=== PATIENT | female | born 1995 ===

== ENCOUNTER 2016-10-14 19:37 | Inpatient (IN) | payer MEDICAID ==
--- NOTE | 2016-10-14 20:35 | OBHP ---
Datetime: 10/14/2016 20:27 IP Adm Impression: Term, intrauterine ; No Active Labor IP Admit Plan: Admit to unit; Initiate labor induction protocol Pelvic Type - PN: Adequate Extremities - PN: Normal Abdomen - PN: Normal Back - PN: Normal Breast - PN: Normal Lungs - PN: Normal Heart - PN: Normal Thyroid - PN: Normal Neurologic - PN: Normal HEENT - PN: Normal General - PN: Normal IP Hx Assessment: The History has been Reviewed and is Current EGA AdmitDate IP: 40.6 IP Indication for Induction: Postterm Genitourinary Exam: Normal DTRs - PN: Normal Datetime: 10/14/2016 19:50 Admit Comment, IP Provider: Admit for labor induction. Reassuring Statusb; favorable cervix. P itocin for induction of labor. Weight - Estimated: 3600 Presentation-Admit: Vertex FHR - Baseline A Provider: 130 Membranes, Provider: Intact Contraction Comments Provider: Q 5min. Gestation - Est Wks by US: 41.0 Vital Signs Provider: Reviewed; Within Normal Limits IP Chief Complaint: Scheduled induction of labor NICHD Variability Prov Fetus A: Moderate 6-25bpm NICHD Accel Fetus A IP Provider: 15X15 FHR Category Provider Fetus A: Category I NICHD Decel Fetus A IP Provider: None Dilatation, Provider: 2 Effacement, Provider: 70 Station, Provider: -1
--- NOTE | 2016-10-14 20:39 | OBADHP ---
Datetime: 10/14/2016 20:27 Admit Comment, IP Provider: Reassuring Status. Admit for Labor Induction with Pitocin Pelvic Type - PN: Adequate Extremities - PN: Normal Abdomen - PN: Normal Back - PN: Normal Breast - PN: Normal Lungs - PN: Normal Heart - PN: Normal Thyroid - PN: Normal Neurologic - PN: Normal HEENT - PN: Normal General - PN: Normal Weight - Estimated: 3600 Presentation-Admit: Vertex FHR - Baseline A Provider: 130 Membranes, Provider: Intact Contraction Comments Provider: Q 5min. Gestation - Est Wks by US: 41.0 IP Hx Assessment: The History has been Reviewed and is Current Vital Signs Provider: Reviewed; Within Normal Limits NICHD Variability Prov Fetus A: Moderate 6-25bpm NICHD Accel Fetus A IP Provider: 15X15 FHR Category Provider Fetus A: Category I NICHD Decel Fetus A IP Provider: None Dilatation, Provider: 2 Effacement, Provider: 70 Station, Provider: -1 Genitourinary Exam: Normal DTRs - PN: Normal EGA AdmitDate IP: 40.6 IP Adm Impression: Term, intrauterine ; No Active Labor IP Admit Plan: Admit to unit; Initiate labor induction protocol Datetime: 10/14/2016 19:50 IP Chief Complaint: Scheduled induction of labor
[2016-10-14 20:41] VITALS: BMI 25.1
[2016-10-14] MEDS ORDERED: Lactated Ringer's 1,000 ML IV SCH (20:45)
[2016-10-14 21:14] LABS: BASO % 0.2 % (0.0-2.0); EOS % 0.2 % (0.0-4.0); HEMATOCRIT 41.5 % (34.0-47.0); LYMPH # 1.8 K/uL (1.0-4.3); LYMPH % 26.3 % (20.0-40.0); MEAN CELL VOLUME 87.8 fL (81.0-99.0); MEAN CORPUSCULAR HEMOGLOBIN 29.2 pg (27.0-31.0); MEAN CORPUSCULAR HGB CONC 33.3 g/dL (33.0-37.0); MEAN PLATELET VOLUME 9.1 fL (7.2-11.7); MONO # 0.6 K/uL (0.0-0.8); MONO % 8.3 % (0.0-10.0); RED CELL DISTRIBUTION WIDTH 13.4 % (11.5-14.5); WHITE BLOOD COUNT 6.8 K/uL (4.8-10.8)
[2016-10-14 21:23] LABS: RBC URINE 3 /hpf (0-3); URINE BACTERIA OCC (<OCC); URINE BILIRUBIN NEGATIVE (NEGATIVE); URINE BLOOD NEGATIVE (NEGATIVE); URINE COLOR Yellow (YELLOW); URINE GLUCOSE (UA) NORMAL (Normal); URINE KETONE NEGATIVE (NEGATIVE); URINE LEUKOCYTE ESTERASE NEG Leu/uL (Negative); URINE PROTEIN NEGATIVE (NEGATIVE); URINE UROBILINOGEN NORMAL mg/dL (0.2-1.0); WBC URINE 3 /hpf (0-5)
[2016-10-14 21:24] LABS: GFR AFRICAN-AMERICAN > 60; GLUCOSE,RANDOM 72 mg/dL (65-105)
[2016-10-15] MEDS ORDERED: Bupivacaine 0.125%/FentaNYL 200 ML EPI ONE (00:38)
[2016-10-15] MEDS ORDERED: Bupivacaine HCl 0.25% PF (10 ml) Inj ONE (00:38)
[2016-10-15] MEDS ORDERED: Oxytocin 30 UNIT 30 UNITS/500 ML BAG IV SCH (01:00)
[2016-10-15] MEDS ORDERED: Oxytocin 30 UNIT 30 UNITS/500 ML BAG IV ONE (02:59)
--- NOTE | 2016-10-15 03:29 | OBPN ---
Datetime: 10/15/2016 03:21 IP Progress Plan Other: HAs Epidural Anesthesia IP Progress Impression: Normal progression of labor; Reassuring heart rate IP Informed Consent Obtain: Vaginal Delivery; Risks, Benefits and Alternatives Discussed IP Procedures: Artificial ROM; Sterile Vag Exam IP Progress Plan: Continue present management; Anticipate Vaginal Delivery Contraction Comments Provider: Q 2min. FHR - Baseline A Provider: 140 IP Fetus A Comments: Prolong decel. spontaneously recovered. Gestation - Est Wks by US: 41.0 Weight - Estimated: 3600 Presentation-Admit: Vertex IP Progress Note Comment: Active Labor. tracing currently CategoryI . Will allow labor to proc eed. Hold Pitocin. Anticipate . FHR Category Provider Fetus A: Category II NICHD Variability Prov Fetus A: Moderate 6-25bpm Dilatation, Provider: 6 Effacement, Provider: 100 Station, Provider: 0 NICHD Decel Fetus A IP Provider: Prolonged Datetime: 10/14/2016 20:27 Membranes, Provider: Intact Vital Signs Provider: Reviewed; Within Normal Limits NICHD Accel Fetus A IP Provider: 15X15
[2016-10-15] MEDS ORDERED: Lidocaine 2% Inj (20ml) ONE (05:31)
--- NOTE | 2016-10-15 06:21 | OBDS ---
DELIVERY PERSONNEL Delivery Doctor: Shyanne Francis MD Scrub Nurse: Bharti Mascorro Guideman: Angela Mercer RN Anesthesiologist: MATERNAL INFORMATION Delivery Anesthesia: Epidural Medications in Delivery: PITOCIN Estimated Blood Loss (ml): 200 Placenta Cultured: No Maternal Complications: None RN Comments: LIVE BABY GIRL 9/9 SKIN TO SKIN DONE Provider Comments: TO A VIABLE GIRL, TIGHT NUCHAL CORD CLAMPED AND CUT PRIOR TO DELIVERY OF THE SHOULDERS. 'S 9/9. LABOR SUMMARY EDC: 10/08/2016 00:00 No. Babies in Womb: 1 Attempted: No Labor Anesthesia: Epidural LABOR INFORMATION Reason for Induction: Postterm Onset of Labor: 10/15/2016 00:30 Complete Dilatation: 10/15/2016 05:25 Cervical Ripening Agents: Cytotec @ (Annotations: 50 MCG GIVEN PO) Oxytocin: N/A Group B Beta Strep: Negative (Annotations: 09/20/2016) Antibiotics # of Doses: 0 Antibiotics Time of Last Dose: 0 Steroids Given: None Reason Steroids Not Administered: Not Applicable Other Reason Not Administered: term MEMBRANES Membranes Rupture Method: Artificial Rupture of Membranes: 10/15/2016 03:14 Length of Rupture (hrs): 2.67 Amniotic Fluid Color: Clear Amniotic Fluid Amount: Small STAGES OF LABOR Stage 1 hrs: 4 Stage 1 min: 55 Stage 2 hrs: 0 Stage 2 min: 29 Stage 3 hrs: 0 Stage 3 min: 4 Total Time in Labor hrs: 5 Total Time in Labor min: 28 VAGINAL DELIVERY Episiotomy: None Laceration Extension: Second Degree Laceration Type: Vaginal Other Laceration: 2.0 CHROMIC Laceration Repair: Yes Laceration Repair Note: Second degree laceration repaired with 2-0 Chromic catgut. Initial Vag Sponge Count: 10 Final Vag Sponge Count: 10 Initial Vag Sharps Count: 0 Final Vag Sharps Count: 1 Sponge Count Correct: Yes; Vaginal Sweep Performed Sharps Count Correct: Yes BABY A INFORMATION Delivery Date/Time: 10/15/2016 05:54 Method of Delivery: Vaginal Born in Route : No : N/A Forceps: N/A Vacuum Extraction: N/A Shoulder Dystocia : No SHOULDER DYSTOCIA BABY A Infant Delivery Date/Time: 10/15/2016 05:54 PRESENTATION/POSITION BABY A Presentation: Cephalic Cephalic Presentation: Vertex Vertex Position: Right Occipital Anterior Breech Presentation: N/A PLACENTA INFORMATION BABY A Placenta Delivery Time : 10/15/2016 05:58 Placenta Method of Delivery: Spontaneous Placenta Status: Delivered SCORES BABY A Heart Rate 1 min: >100 bpm Resp Effort 1 min: Good Cry Reflex Irritability 1 min: Cough or Sneeze or Pulls Away Muscle Tone 1 min: Active Motion Color 1 min: Body [place], Extremities Blue Resuscitation Effort 1 min: Tactile Stimulation SCORE 1 MIN: 9 Heart Rate 5 min: >100 bpm Resp Effort 5 min: Good Cry Reflex Irritability 5 min: Cough or Sneeze or Pulls Away Muscle Tone 5 min: Active Motion Color 5 min: Body [place], Extremities Blue SCORE 5 MIN: 9 INFORMATION BABY A Gestational Age at Delivery: 40.6 Gestational Status: Term Infant Outcome : Liveborn Condition : Stable Sex: Female IDENTIFICATION/MEDS BABY A ID Band Number: [id number] ID Band Location: Left Leg; Left Arm Sensor Applied: Yes Sensor Number: [id number] Sensor Location : Cord Clamp WEIGHT/LENGTH BABY A Infant Birthweight (gms): 3435 Weight (lb): 7 Infant Weight (oz): 9 Infant Length Inches: 19.50 Infant Length cms: 49.5 CORD INFORMATION BABY A No. Cord Vessels: 3 Nuchal Cord : Around Neck x2, Tight Cord Blood Taken: No Suction: Mouth; Nose ASSESSMENT BABY A Complications: None Physical Findings at Delivery: Within Normal Limits Infant Respirations: Appears Normal Retail Team Leader/ALS Called : No Infant Care By: PARAM COBB Transferred To: [facility]
[2016-10-15] MEDS: Multiple Vitamins Tab PO SCH (10:28)
[2016-10-16] MEDS: Benzocaine/Menthol 20%-0.5% Topical Spray (60 ml) TOP SCH ×3 (04:24→18:12)
--- NOTE | 2016-10-16 07:39 | OBPPN ---
Datetime: 10/16/2016 07:26 PP Pain Prov: Within normal limits PP Nausea Prov: Denies PP Flatus Prov: Yes PP BM Prov: Yes PP Breasts Prov: Normal PP Heart Prov: Normal PP Lungs Prov: Normal PP Abdomen/Uterus Prov: Normal PP Lochia Prov: Normal PP Vulva/Perineum Prov: Normal PP CVA Tenderness Prov: Normal PP Extremities Prov: Normal PP Comments Phys Exam Prov: UTERUS FIRM AND CONTRACTED. LOCHIA MINIMAL. PP Impression Prov: Normal progression PP Plan Prov: Continue present management PP Progress Note Prov: sTABLE. DISCHARGE HOME TOMORROW. IP PP Procedures: None Vital Signs Provider PP: Reviewed; Within Normal Limits
[2016-10-16] MEDS: Multiple Vitamins Tab PO SCH (09:16)
[2016-10-17 08:31] VITALS: BP 125/73; PULSE 64; RESP 18; TEMP 97.2; O2SAT 99
[2016-10-17] MEDS: Multiple Vitamins Tab PO SCH (09:00)
--- NOTE | 2016-10-17 10:20 | OBPPN ---
Datetime: 10/17/2016 10:16 PP Pain Prov: Within normal limits PP Pain Prov comment: Well PP Nausea Prov: Denies PP Flatus Prov: Yes PP BM Prov: Yes PP Breasts Prov: Normal PP Heart Prov: Normal PP Lungs Prov: Normal PP Abdomen/Uterus Prov: Normal PP Lochia Prov: Normal PP Vulva/Perineum Prov: Normal PP CVA Tenderness Prov: Normal PP Extremities Prov: Normal PP C/S Incision Prov: Not Applicable PP Progress Prov: Normal PP Comments Phys Exam Prov: Uterus firm and contracted, lochia minimal PP Impression Prov: Normal progression PP Plan Prov: Discharge PP Progress Note Prov: Stable. Discharge home. Clinic follow up in 6 weeks. Vital Signs Provider PP: Reviewed; Within Normal Limits
--- NOTE | 2016-10-17 10:22 | OBDCSUM ---
Datetime: 10/17/2016 07:58 Discharged to, Provider: Home Follow up at, Provider: [facility] Disch Instr Activity: Normal activity Disch Instr Diet: Regular Discharge Diet restrict Prov: none Discharge Instructions, Provider: Routine instructions given Discharge Diagnosis, Provider: Term Delivered Discharge Time: 10/17/2016 10:00 Follow up in weeks, Provider: 6 weeks Disch Referrals: None Contraception discussed, Prov: Yes Disch Activity Restrictions: No exercising; No lifting; No sexual activity; Nothing in vagina - Inte rcourse, tampons, douche Discharge Comment, Provider: , UNCOMPLICATED Discharge Diagnosis Prov Other: Contraception after Delivery: Undecided
== END 2016-10-17 12:30 | disposition home or self-care (01) | DRG 373 ==
LOC: C.EROB 19:37 → C.4D 20:32 → UNDOADMIN 20:32 → C.4D 20:42 → C.4M 10-15 08:15
PROVIDERS: ADMIT Obstetrics & Gynecology; ATTEND Obstetrics & Gynecology
PROC: 3E0P7GC Introduction of Other Therapeutic Substance into Female Reproductive, Via Natural or Artificial Opening (ICD-10-PCS; 2016-10-14)
PROC: 10E0XZZ Delivery of Products of Conception, External Approach (ICD-10-PCS; principal; 2016-10-15)
PROC: 10907ZC Drainage of Amniotic Fluid, Therapeutic from Products of Conception, Via Natural or Artificial Opening (ICD-10-PCS; 2016-10-15)
PROC: 0KQM0ZZ Repair Perineum Muscle, Open Approach (ICD-10-PCS; 2016-10-15)
DX: O48.0 Post-term pregnancy (principal); O69.1XX0 Labor and delivery complicated by cord around neck, with compression, not applicable or unspecified; O70.1 Second degree perineal laceration during delivery; Z3A.40 40 weeks gestation of pregnancy; Z37.0 Single live birth

== ENCOUNTER 2017-07-01 20:39 | Emergency (ER) | payer SELFPAY ==
[2017-07-01 20:39] VITALS: BMI 25.1
[2017-07-01] MEDS ORDERED: Sodium Chloride 0.9% 1,000 ML IV ONE (21:45)
--- NOTE | 2017-07-01 22:02 | C.PDOC ---
History Of Present Illness 22 y/o female presents to the ER complaining of epigastric pain which has been present for the past 1 hour. Patient reports the pain began after she ate pizza. Patient denies having any nausea,vomiting, and diarrhea. Time Seen by Provider: 07/01/17 21:31 Chief Complaint (Nursing): Abdominal Pain History Per: Patient History/Exam Limitations: no limitations Onset/Duration Of Symptoms: Hrs Current Symptoms Are (Timing): Still Present Location Of Pain/Discomfort: Epigastric Radiation Of Pain To:: None Quality Of Discomfort: "Pain" Exacerbating Factors: None Alleviating Factors: None Recent travel outside of the [place]: No Past Medical History Reviewed: Historical Data, Nursing Documentation, Vital Signs Vital Signs: Last Vital Signs Temp 98.5 F 07/01/17 23:47 Pulse 72 07/01/17 23:47 Resp 18 07/01/17 23:47 BP 108/68 07/01/17 23:47 Pulse Ox 100 07/02/17 00:07 - Medical History PMH: No Chronic Diseases Surgical History: No Surg Hx - [facility] Procedures DELIVERY OF PRODUCTS OF CONCEPTION, EXTERNAL APPROACH (10/14/16) DRAINAGE OF AMNIOTIC FL, THERAP FROM POC, VIA OPENING (10/14/16) INTRODUCE OF OTH THERAP SUBST INTO FEM REPROD, VIA OPENING (10/14/16) REPAIR PERINEUM MUSCLE, OPEN APPROACH (10/14/16) Family History: States: No Known Family Hx - Social History Hx Alcohol Use: Yes Hx Substance Use: No - Immunization History Hx Tetanus Toxoid Vaccination: No Hx Influenza Vaccination: No Hx Pneumococcal Vaccination: No Review Of Systems Except As Marked, All Systems Reviewed And Found Negative. Constitutional: Negative for: Fever, Chills Gastrointestinal: Positive for: Abdominal Pain. Negative for: Nausea, Vomiting , Diarrhea Physical Exam - Physical Exam Appears: Non-toxic, No Acute Distress Skin: Normal Color, Warm, No Rash Head: Atraumatic, Normacephalic Eye(s): bilateral: Normal Inspection, PERRL, EOMI Nose: Normal Oral Mucosa: Moist Neck: Normal ROM, Supple Chest: Symmetrical Cardiovascular: Rhythm Regular, No Friction Rub, No Murmur Respiratory: Normal Breath Sounds, No Accessory Muscle Use, No Rales, No Rhonchi , No Wheezing Gastrointestinal/Abdominal: Normal Exam, Soft, Tenderness (mild to moderate epigastric tenderness ) Extremity: Normal ROM Neurological/Psych: Oriented x3, Normal Speech, Normal Cognition, Normal Motor, Normal Sensation Gait: Steady ED Course And Treatment - Laboratory Results Result Diagrams: 07/01/17 23:08 07/01/17 23:08 O2 Sat by Pulse Oximetry: 100 (RA) Pulse Ox Interpretation: Normal Medical Decision Making Medical Decision Making: Impression: Epigastric Pain Plan: --CXR --Labs On re-exam, the patient reports improvement of symptoms. Lungs are CTA, heart is RRR, abdomen is soft, non-tender and the patient is tolerating PO well. Ambulatory in the ED with steady gait. Disposition - Disposition Referrals: [facility] [Outside] Disposition: HOME/ ROUTINE Disposition Time: 00:05 Condition: IMPROVED Additional Instructions: Follow up with the medical doctor/clinic within 1-2 days without fail. Return if worsened. Prescriptions: Famotidine [Pepcid] 20 mg PO BID #20 tab Instructions: Gastritis (DC) Forms: [employer] (Estonian), Work Excuse Print Language: PORTUGUESE - Clinical Impression Clinical Impression: Abdominal pain, Gastritis - PA / PHYSICIAN OFFICE SECRETARY / Resident Statement MD/DO has reviewed & agrees with the documentation as recorded. - Scribe Statement The provider has reviewed the documentation as recorded by the Ashley Fitch Provider Attestation All medical record entries made by the Ashley were at my direction and personally dictated by me. I have reviewed the chart and agree that the record accurately reflects my personal performance of the history, physical exam, medical decision making, and the department course for this patient. I have also personally directed, reviewed, and agree with the discharge instructions and disposition.
[2017-07-01 22:26] LABS: HCG,QUALITATIVE URINE NEGATIVE (NEGATIVE)
[2017-07-01 22:27] LABS: SQUAMOUS EPITHIAL 1 /hpf (0-5); URINE BILIRUBIN NEGATIVE (NEGATIVE); URINE BLOOD NEGATIVE (NEGATIVE); URINE CLARITY Clear (Clear); URINE COLOR Yellow (YELLOW); URINE GLUCOSE (UA) NORMAL (Normal); URINE LEUKOCYTE ESTERASE NEG Leu/uL (Negative); URINE NITRATE NEGATIVE (NEGATIVE); URINE PROTEIN NEGATIVE (NEGATIVE); URINE UROBILINOGEN NORMAL mg/dL (0.2-1.0)
[2017-07-01] MEDS ORDERED: Alum-Mag Hydrox-Simethicone Susp (30 mL) PO STA (22:31)
[2017-07-01] MEDS ORDERED: Alum-Mag Hydrox-Simethicone Susp (30 mL) ONE (22:46)
[2017-07-01 23:12] LABS: BASO % 0.2 % (0.0-2.0); EOS # 0.1 K/uL (0.0-0.7); EOS % 0.6 % (0.0-4.0); HEMOGLOBIN 15.5 g/dL (11.0-16.0); LYMPH # 1.5 K/uL (1.0-4.3); MEAN CELL VOLUME 87.9 fL (81.0-99.0); MEAN CORPUSCULAR HEMOGLOBIN 29.3 pg (27.0-31.0); MEAN CORPUSCULAR HGB CONC 33.3 g/dL (33.0-37.0); MEAN PLATELET VOLUME 9.7 fL (7.2-11.7); MONO # 0.7 K/uL (0.0-0.8); MONO % 5.9 % (0.0-10.0); NEUT # 10.2 K/uL (1.8-7.0); NEUT % 81.3 % (50.0-75.0); RBC 5.27 Mil/uL (3.80-5.20); RED CELL DISTRIBUTION WIDTH 12.8 % (11.5-14.5); WHITE BLOOD COUNT 12.5 K/uL (4.8-10.8)
[2017-07-01 23:25] LABS: CALCIUM 9.5 mg/dl (8.6-10.4); GFR AFRICAN-AMERICAN > 60; GFR NON-AFRICAN AMERICAN > 60; LIPASE 157 U/L (23-300)
[2017-07-01 23:26] LABS: ALB/GLOB RATIO 1.1 (1.0-2.1); ALBUMIN 4.4 g/dL (3.5-5.0); ALT/SGPT 98 U/L (9-52); AST/SGOT 109 U/L (14-36); BLOOD UREA NITROGEN 10 mg/dL (7-17)
[2017-07-01] MEDS ORDERED: Sodium Chloride 0.9% 1,000 ML ONE (23:36)
[2017-07-01 23:48] VITALS: BP 108/68; PULSE 72; RESP 18; TEMP 98.5
[2017-07-02 00:08] VITALS: O2SAT 100
--- NOTE | 2017-07-02 11:30 | RAD ---
HISTORY: epigastric abd pain COMPARISON: No prior. FINDINGS: LUNGS: No active pulmonary disease. PLEURA: No significant pleural effusion identified, no pneumothorax apparent. CARDIOVASCULAR: Normal. OSSEOUS STRUCTURES: No significant abnormalities. VISUALIZED UPPER ABDOMEN: Normal. OTHER FINDINGS: None. IMPRESSION: No active disease.
== END 2017-07-02 00:40 | disposition home or self-care (01) ==
LOC: C.ER 20:39
DX: K29.70 Gastritis, unspecified, without bleeding (principal); R10.13 Epigastric pain
CPT/HCPCS: 71045; 80053; 81001; 83690; 84703; 85025; 96361; 96374; 96375; 99284; J2405; J7040